=== PATIENT | female | born 1990 | race Caucasian/White ===

== ENCOUNTER 2022-11-29 14:12 | Outpatient (CLI) | payer OTHER ==
[2022-11-29] MEDS ORDERED: PRENATAL + DHA1 EAC1 PO (14:19)
== END 2022-11-29 15:57 | disposition home or self-care (01) ==
LOC: OBS/DEL 14:12
PROVIDERS: ATTEND Obstetrics & Gynecology
DX: O26.893 Other specified pregnancy related conditions, third trimester (principal); Z3A.30 30 weeks gestation of pregnancy

== ENCOUNTER 2023-01-13 12:24 | Inpatient (IN) | payer OTHER ==
[~2023-01-13] VITALS: Ht 162.6 cm; Wt 3.6 kg
[~2023-01-13 12:24] MED LIST: PRENATAL + DHA1 EAC1 PO
[2023-02-01] MEDS ORDERED: OXYC1TAB9 PO (07:39)
[2023-02-01] MEDS ORDERED: KETO10TA2 PO (07:39)
== END 2023-02-01 11:20 | disposition home or self-care (01) | DRG 788 ==
LOC: OB/GYN 01-30 12:23 → LDR 01-30 12:49 → OB/GYN 01-30 19:36
PROVIDERS: Obstetrics & Gynecology Maternal & Fetal Medicine; ADMIT Obstetrics & Gynecology; ATTEND Obstetrics & Gynecology
PROC: 4A1HXCZ Monitoring of Products of Conception, Cardiac Rate, External Approach (ICD-10-PCS; 2023-01-30)
PROC: 10D00Z1 Extraction of Products of Conception, Low, Open Approach (ICD-10-PCS; principal; 2023-01-30 17:00)
DX: O62.1 Secondary uterine inertia (principal); O66.2 Obstructed labor due to unusually large fetus; O36.63X0 Maternal care for excessive fetal growth, third trimester, not applicable or unspecified; Z3A.39 39 weeks gestation of pregnancy; Z37.0 Single live birth; O99.824 Streptococcus B carrier state complicating childbirth

== ENCOUNTER 2023-01-20 12:18 | Outpatient (CLI) | payer OTHER | END 2023-01-20 13:34 | disposition home or self-care (01) | LOC: NST 12:18 | PROVIDERS: ATTEND Obstetrics & Gynecology Gynecology | DX: Z34.83 Encounter for supervision of other normal pregnancy, third trimester (principal) ==

== ENCOUNTER 2023-01-28 12:16 | Outpatient (CLI) | payer OTHER | END 2023-01-28 12:43 | disposition home or self-care (01) | LOC: NST 12:16 | PROVIDERS: ATTEND Obstetrics & Gynecology | DX: Z34.83 Encounter for supervision of other normal pregnancy, third trimester (principal) ==